=== PATIENT | male | born 1945 | race Caucasian/White ===

== ENCOUNTER → 2020-11-27 | Outpatient (CLI) | payer MEDICARE, OTHER | LOC: EXRD 10:47 | DX: Z00.00 Encounter for general adult medical examination without abnormal findings (principal); E89.0 Postprocedural hypothyroidism; D44.9 Neoplasm of uncertain behavior of unspecified endocrine gland; E04.2 Nontoxic multinodular goiter | CPT/HCPCS: 76536 ==

== ENCOUNTER → 2021-10-28 | Outpatient (CLI) | payer MEDICARE, OTHER | LOC: ECHO 12:46 → NM 10-29 15:00 | DX: R07.9 Chest pain, unspecified (principal) | CPT/HCPCS: ECHO; 93017; 93306 ==

== ENCOUNTER → 2021-11-19 | Outpatient (CLI) | payer MEDICARE, OTHER | LOC: CT 12:01 | DX: R07.89 Other chest pain (principal); I77.810 Thoracic aortic ectasia; R91.8 Other nonspecific abnormal finding of lung field; R91.1 Solitary pulmonary nodule | CPT/HCPCS: 36415; 71275; 82565; 84520; Q9967 ==